=== PATIENT | female | born 1970 | race Caucasian/White ===

== ENCOUNTER → 2017-04-03 | Outpatient (CLI) | payer OTHER ==
--- NOTE | ~2017-04-03 | CR63 ---
[facility] A Service of [facility] RADIOLOGY TEXT RESULTS PATIENT: LAURA GARCIA LOCATION: [facility] : 66 UNIT #: [id number] AGE: [address]: Porsha Allison MD SEX: F ORDER DR: [id number] [facility] [address] [address] [facility] [place], [place] [address] [id number] O MR#: [id number] Acc #: [id number] NAME: LAURA GARCIA : 1970 SEX: F STUDY DATE/TIME: 04/03/2017 11:05 UNIT: [facility] ROOM: STUDY DESCRIPTION: CR Chest 2 View Attending Physician: Porsha Allison M.D. Referring Physician: Porsha Allison M.D. Ordering Physician: Porsha Allison M.D. Primary Care Physician: Porsha Allison M.D. MEDICAL IMAGING REPORT This report is preliminary unless electronic signature is present EXAM Chest, 04/03/2017, [facility]. HISTORY 46-year-old woman chest wall pain right side the past [id number] weeks. Cough. COMPARISON None. FINDINGS PA and lateral chest views show normal cardiac size and configuration. Hilar structures and mediastinal contours are preserved. Bilateral lungs are expanded and clear. Costophrenic angles are clear. Bony thorax appears normal. IMPRESSION Negative chest. Dictated by... Alireza Carter M.D. THIS IS AN ELECTRONICALLY VERIFIED REPORT Alireza Carter M.D. at 04/04/2017 8:08 AM NILESH/sumeet TD: 04/03/2017 17:48 JOB #: [id number] MEDICAL IMAGING REPORT Page 1 of 1 COPY
== END | disposition home or self-care (01) ==
LOC: CRAD 10:53
DX: R07.89 Other chest pain (principal)
CPT/HCPCS: 71020

== ENCOUNTER → 2017-04-14 | Outpatient (CLI) | payer OTHER ==
--- NOTE | ~2017-04-14 | MY11 ---
[facility] A Service of [facility] RADIOLOGY TEXT RESULTS PATIENT: LAURA GARCIA LOCATION: [facility] : 66 UNIT #: [id number] AGE: [address]: Porsha Allison MD SEX: F ORDER DR: [id number] [address] [address] [id number] O MR#: [id number] Acc #: [id number] NAME: LAURA GARCIA : 1970 SEX: F STUDY DATE/TIME: 04/14/2017 10:05 UNIT: [facility] ROOM: STUDY DESCRIPTION: MY Mammogram Screening Dig Jimbo Attending Physician: Porsha Allison M.D. Referring Physician: Porsha Allison M.D. Ordering Physician: Porsha Allison M.D. Primary Care Physician: Porsha Allison M.D. MEDICAL IMAGING REPORT This report is preliminary unless electronic signature is present. EXAM Digital screening mammogram, 04/14/2017, [facility] HISTORY 46-year-old woman; no risk elevation. Annual screening. COMPARISON Comparison mammograms date to 03/30/2009, with most recent 01/31/2014. FINDINGS Digital imaging of each breast was completed utilizing screening protocol. Review includes FDA-approved CAD device. Breast parenchyma remains dense with residual fibroglandular opacities in each breast. There is coexisting small nodularity slightly dominant in the outer hemisphere of the left breast. I see no suspicious mass characteristics. There are no interval occurring microcalcifications and no architectural distortion. IMPRESSION Negative stable mammogram. Annual screening recommended. Patients over the age of 40 are entered into a reminder system with target due date for the next mammogram. A result letter will also be sent to the patient. BIRADS: 1 Negative Dictated by... Alireza Carter M.D. [facility] A Service [facility] RADIOLOGY TEXT RESULTS PATIENT: LAURA GARCIA LOCATION: [facility] : 66 UNIT #: [id number] AGE: [address]: Porsha Allison MD SEX: F ORDER DR: THIS IS AN ELECTRONICALLY VERIFIED REPORT Alireza Carter M.D. at 04/14/2017 2:41 PM Annie TD: 04/14/2017 13:55 JOB #: [id number] MEDICAL IMAGING REPORT Page 1 of 1
== END | disposition home or self-care (01) ==
LOC: SMAM 09:22
DX: Z12.31 Encounter for screening mammogram for malignant neoplasm of breast (principal)
CPT/HCPCS: G0202